=== PATIENT | female | born 1980 | race African-American/Black ===

== ENCOUNTER 2018-08-04 12:24 | Inpatient (IN) | payer MEDICAID, OTHER ==
[~2018-08-04] VITALS: Ht 157.5 cm; Wt 58.5 kg
[2018-08-04] MEDS ORDERED: DEXT 5%/LR + PITOCIN 20UNITS/L 1,000 ML IV SCH ×2 (12:45→13:50)
[2018-08-04] MEDS ORDERED: METHYLERGONOVINE MALEATE 0.2 MG/ML IM PRN ×2 (12:45→14:00)
[2018-08-04] MEDS ORDERED: LACTATED RINGERS 1,000 ML IV SCH ×3 (12:45→16:45)
[2018-08-04] MEDS ORDERED: DEXT 5%/LR + PITOCIN 20UNITS/L 1,000 ML IV ONE (12:48)
[2018-08-04] MEDS ORDERED: RHO(D) IMMUNE GLOBULIN 300 MCG/SYR IM PRN (14:00)
[2018-08-04] MEDS ORDERED: IBUPROFEN 800MG TABLET PO PRN (14:00)
[2018-08-04] MEDS ORDERED: IBUPROFEN 400MG TABLET PO PRN (14:00)
[2018-08-04 15:03] LABS: BASOPHILS % 0.3 % (0.0-2.0); EOSINOPHILS % 0.2 % (0.0-5.0); HEMATOCRIT. 35.2 % (36.0-48.0); HEMOGLOBIN. 11.6 g/dL (12.0-16.0); LYMPHOCYTES % 8.9 % (20.0-50.0); MEAN CORPUSCULAR HEMOGLOBIN 29.3 pg (28.0-32.0); MEAN PLATELET VOLUME 8.9 fl (7.4-10.4); MONOCYTES % 4.9 % (2.0-8.0); NEUTROPHILS % 85.7 % (40.0-76.0); PLATELET 216 x1000/uL (130-400); RED BLOOD CELL COUNT 3.95 mill/uL (4.2-5.4); RED CELL DISTRIBUTION WIDTH 13.2 % (11.6-14.6)
[2018-08-04 15:11] LABS: INR 0.9; PARTIAL THROMBOPLASTIN TIME 30.1 sec (23.4-31.0); PROTHROMBIN TIME 9.2 sec (9.1-11.1)
[2018-08-04 15:30] VITALS: BP 106/72
[2018-08-04 15:49] LABS: HEPATITIS B SURFACE ANTIGEN NEGATIVE
[2018-08-04 16:00] VITALS: BP 116/79
[2018-08-04 19:03] LABS: CLARITY URINE CLOUDY (CLEAR); COLOR URINE RED (YELLOW); KETONES URINE TRACE (NEGATIVE); LEUKOCYTE ESTERASE URINE 2+ (NEGATIVE); NITRITE URINE NEGATIVE (NEGATIVE); OCCULT BLOOD URINE 3+ (NEGATIVE); PH URINE 7.5 (4.5-8.0); PROTEIN URINE TRACE (NEGATIVE); SPECIFIC GRAVITY URINE 1.008 (1.005-1.030); UROBILINOGEN URINE 0.2 E.U./dL (0.2-1.0)
[2018-08-04 19:18] LABS: *BENZODIAZEPINES SCREEN URINE NEGATIVE (NEGATIVE)
[2018-08-04 19:19] LABS: *COCAINE SCREEN URINE NEGATIVE (NEGATIVE); CANNABINOID URINE SCREEN NEGATIVE (NEGATIVE); METHADONE URINE SCREEN NEGATIVE (NEGATIVE); OPIATES URINE SCREEN NEGATIVE (NEGATIVE); PHENCYCLIDINE URINE SCREEN NEGATIVE (NEGATIVE)
[2018-08-04 19:20] LABS: *BARBITURATES SCREEN URINE NEGATIVE (NEGATIVE)
[2018-08-04 20:00] VITALS: BP 104/67
[2018-08-04 20:35] LABS: *AMPHETAMINES SCREEN URINE PRESUMTIVE POSITIVE (NEGATIVE)
[2018-08-05] VITALS: BP 110/71
[2018-08-05 04:00] VITALS: BP 109/73
[2018-08-05 07:17] LABS: BASOPHILS % 0.4 % (0.0-2.0); EOSINOPHILS % 0.6 % (0.0-5.0); HEMATOCRIT. 32.7 % (36.0-48.0); HEMOGLOBIN. 10.9 g/dL (12.0-16.0); LYMPHOCYTES % 22.7 % (20.0-50.0); MEAN CORPUSCULAR HEMOGLOBIN 30.5 pg (28.0-32.0); MEAN CORPUSCULAR VOLUME 91.2 fL (81.0-99.0); MEAN PLATELET VOLUME 9.3 fl (7.4-10.4); MONOCYTES % 8.9 % (2.0-8.0); NEUTROPHILS % 67.4 % (40.0-76.0); PLATELET 222 x1000/uL (130-400); RED BLOOD CELL COUNT 3.59 mill/uL (4.2-5.4); RED CELL DISTRIBUTION WIDTH 13.7 % (11.6-14.6)
[2018-08-05 08:00] VITALS: BP 102/60
[2018-08-05] MEDS: PRENATAL VIT/FE FUMARATE/FA TABLET PO SCH (09:00)
[2018-08-05 16:34] VITALS: BP 95/55
[2018-08-05 20:00] VITALS: BP 114/68
[2018-08-06 04:00] VITALS: BP 107/64
[2018-08-06 09:00] VITALS: BP 113/74
[2018-08-06] MEDS: PRENATAL VIT/FE FUMARATE/FA TABLET PO SCH (09:00)
[2018-08-10 19:06] LABS: AMPHETAMINE CONF URINE Positive (.)
== END 2018-08-06 18:20 | disposition home or self-care (01) | DRG 560 ==
LOC: OBSVTOIN 12:24 → 8 EST LDRP 12:24 → 8EST 16:43
PROVIDERS: ADMIT Obstetrics & Gynecology; ATTEND Obstetrics & Gynecology
DX: O72.0 Third-stage hemorrhage (principal); O99.325 Drug use complicating the puerperium; D64.9 Anemia, unspecified; O99.53 Diseases of the respiratory system complicating the puerperium; O71.4 Obstetric high vaginal laceration alone; F15.10 Other stimulant abuse, uncomplicated; J45.909 Unspecified asthma, uncomplicated; O90.81 Anemia of the puerperium
CPT/HCPCS: 36415; 80305; 80307; 86592; 86703; 86762; 86850; 86900; 87340; 99281; C1893; G0378; J2590; J7120

== ENCOUNTER 2023-08-25 23:44 | Emergency (ER) | payer MEDICAID, OTHER ==
[~2023-08-25] VITALS: Ht 154.9 cm; Wt 56.0 kg
[2023-08-26 00:02] VITALS: O2SAT 98
[2023-08-26] MEDS: TETANUS, DIPHTHERIA, PERTUSSIS VAC/PF 0.5ML (>10YR OLD) IM ONE (00:58)
[2023-08-26] MEDS: BACITRACIN ZINC OINT UDPKT TOP ONE (01:00)
[2023-08-26] MEDS: LIDOCAINE HCL/PF 1% 10 MG/ML 5ML VIAL INFIL ONE ×2 (01:00→02:32)
[2023-08-26] MEDS ORDERED: CEFP100S5 MT (02:27)
[2023-08-26] MEDS ORDERED: IBUP-2028 MT (02:27)
[2023-08-26] MEDS ORDERED: CLIN-116 MT (02:27)
[2023-08-26] MEDS ORDERED: TOPUD MT (02:27)
[2023-08-26 02:32] VITALS: RESP 12
[2023-08-26] MEDS: CEFTRIAXONE SODIUM 1G VIAL IM ONE (02:32)
[2023-08-26] MEDS: HYDROCODONE/ACETAMINOPHEN 5/325MG TABLET PO ONE (02:32)
[2023-08-26] MEDS: CLINDAMYCIN HCL 150MG CAPSULE PO ONE (02:34)
[2023-08-26 03:12] VITALS: BP 113/82; PULSE 87; TEMP 99.1
== END 2023-08-26 03:13 | disposition home or self-care (01) ==
LOC: ER 23:44
DX: L03.012 Cellulitis of left finger (principal)
CPT/HCPCS: 10060; 99284; 90715; 90471; 96372; J0696; J3490; Z7610 ×3

== ENCOUNTER 2023-10-28 18:25 | Emergency (ER) | payer MEDICAID, OTHER ==
[~2023-10-28] VITALS: Ht 160 cm; Wt 55.0 kg
[~2023-10-28 18:25] MED LIST: CEFP100S5 MT; CLIN-116 MT; IBUP-2028 MT; TOPUD MT
[2023-10-28 18:27] VITALS: BP 114/78; PULSE 104; RESP 18; TEMP 98.5; O2SAT 100
[2023-10-28 19:10] LABS: BASOPHILS % 0.5 % (0.0-2.0); EOSINOPHILS % 3.8 % (0.0-5.0); HEMATOCRIT. 34.6 % (36.0-48.0); HEMOGLOBIN. 11.8 g/dL (12.0-16.0); LYMPHOCYTES % 25.7 % (20.0-50.0); MEAN CORPUSCULAR HEMOGLOBIN 32.5 pg (28.0-32.0); MEAN CORPUSCULAR VOLUME 95.4 fL (81.0-99.0); MEAN PLATELET VOLUME 8.2 fl (7.4-10.4); MONOCYTES % 10.3 % (2.0-8.0); NEUTROPHILS % 59.7 % (40.0-76.0); PLATELET 244 x1000/uL (130-400); RED BLOOD CELL COUNT 3.63 mill/uL (4.2-5.4); RED CELL DISTRIBUTION WIDTH 12.8 % (11.6-14.6); WHITE BLOOD COUNT 6.1 x1000/uL (4.5-11.0)
[2023-10-28 19:16] LABS: CHLORIDE 106 mEq/L (98-107); POTASSIUM 3.5 mEq/L (3.5-5.1); SODIUM 142 mEq/L (136-145)
[2023-10-28 19:17] LABS: CALCIUM 8.6 mg/dL (8.7-10.4); CARBON DIOXIDE 31 mEq/L (21-32)
[2023-10-28 19:21] LABS: INR 0.9; PROTHROMBIN TIME 10.4 sec (9.6-11.0)
[2023-10-28 19:22] LABS: CREATININE 0.7 mg/dL (0.6-1.0); GLUCOSE 88 mg/dL (70-105); UREA NITROGEN BLOOD 8 mg/dL (9-23)
[2023-10-28 19:24] LABS: ALANINE AMINOTRANSFERASE 15 IU/L (10-49); ASPARTATE AMINOTRANSFERASE 21 IU/L (<34); BILIRUBIN TOTAL 0.2 mg/dL (0.1-1.0); PROTEIN TOTAL 7.6 g/dL (6.0-8.3)
[2023-10-28 19:26] LABS: TROPONIN I HIGH SENSITIVITY < 4 ng/L (3.0-34)
== END 2023-10-28 21:56 | disposition left against medical advice (07) ==
LOC: ER 18:25
DX: R06.02 Shortness of breath (principal); Z53.21 Procedure and treatment not carried out due to patient leaving prior to being seen by health care provider
CPT/HCPCS: 36415; 71045; 80053; 84484; 85025; 93005; 99281